=== PATIENT | female | born 1950 | race African-American/Black ===

== ENCOUNTER 2019-08-27 14:07 | Emergency (ER) | payer MEDICARE, SELFPAY ==
[2019-08-27 14:18] VITALS: BP 164/81; PULSE 73; RESP 18; TEMP 36.6; O2SAT 99; BMI 30.4
--- NOTE | 2019-08-27 14:34 | HMH.COUGH ---
Cough Clinic HPI - History of Present Illness HPI:: 69 year old female resident of [facility] who is visiting the [place] currently and needs evaluation of URI symptoms prior to being allowed to fly back to [facility] this coming weekend. Pt has had some non productive cough, sore throat and subjective low grade fever over thge past week. She thinks she may have been around someone with Covid-19 about 3 weeks ago. She denies shortness of breath. Home Medications: Home Medications Medication Instructions Recorded Confirmed Type Calcium Carbonate/Vitamin D3 2 tab PO BID 08/27/19 08/27/19 History [Calcium 600 + Vit D Tablet] Cholecalciferol (Vitamin D3) 400 unit PO DAILY 08/27/19 08/27/19 History [Vitamin D-400] Pantoprazole Sodium [Protonix 40mg 40 mg PO BID 08/27/19 08/27/19 History tablet] Allergies/Adverse Reactions: Allergies Allergy/AdvReac Type Severity Reaction Status Date / Time No Known Allergies Allergy Verified 08/27/19 14:15 Cough Clinic Triage - Symptoms Fever History: Yes Chills: Yes Myalgia: Yes Nasal Drainage: No Sore Throat: Yes Productive Cough: Yes Non-productive Cough: No Ear or Sinus Pain: Yes Joint Pain: Yes Chest Pain: Yes (pt reports feeling like gas pain) Rash: No Shortness of Breath: Yes Nausea or Vomitting: No Headache: Yes Abdominal Pain: No Diarrhea: No - Exposure History Foreign Travel: No Direct Contact with COVID-19 Patient: Yes If YES, Who:: ady When:: 3 weeks ago Distance/Proximity to Contact:: less than 6 feet away Length of Time in Direct Contact:: 40 minutes - Risk Factors Greater than 60 Years Old: Yes COPD: No Diabetes: No Heart Disease: No Home Oxygen Use: No Chronic Renal Disease: No Chronic Liver Disease: No Neurologic/Neurodevelopmental/intellectual disability: No Other Chronic Diseases: No If Female, currently : No Current Smoker: No Former Smoker: No - Eyes Eyes: Denies change in vision - Gastrointestinal Gastrointestingal: Denies: diarrhea, vomiting Cough Clinic Exam - General General appearance: alert, in no apparent distress - Head Head exam: atraumatic, normocephalic, normal inspection - Eye Eye exam: Present: normal appearance, PERRL, EOMI - ENT ENT exam: Present: normal exam, mucous membranes moist, TM's normal bilaterally, normal external ear exam - Expanded ENT Exam Throat exam: Present: tonsillar erythema - Neck Neck exam: Present: normal inspection, full ROM, trachea midline. Absent: meningismus, lymphadenopathy - Chest Chest inspection: Present: normal inspection, symmetric chest wall rise. Absent: tenderness - Respiratory Respiratory exam: Present: normal lung sounds bilaterally. Absent: respiratory distress - Cardiovascular Cardiovascular exam: Present: regular rate, normal rhythm. Absent: JVD - Extremities Exam Extremities exam: Present: normal inspection, full ROM, normal capillary refill. Absent: calf tenderness - Neurological Exam Neurological exam: Present: alert, oriented X3 - Skin Skin exam: Present: warm, dry, intact, normal color - Lymphatic Lymphatic Findings: no adenopathy Cough Clinic MDM Vital Signs: 08/27/19 14:18 Temperature 97.9 F Temperature Source Axillary Pulse Rate [Brachial] 73 Respiratory Rate 18 Blood Pressure [Left Arm] 164/81 H Blood Pressure Mean [Left Arm] 108 Blood Pressure Source [Left Arm] Automatic Cuff Blood Pressure Position [Left Arm] Sitting 02 Sat by Pulse Oximetry 99 Oxygen Delivery Method Room Air - Lab Data Lab Results 08/27/19 14:29: WBC 5.2, RBC 4.45, Hgb 12.7, Hct 38.5, MCV 86.5, MCH 28.4, MCHC 32.9, RDW 13.4, Plt Count 265, MPV 8.1, Neut % (Auto) 54.6, Lymph % (Auto) 31.6, [place] % (Auto) 9.9 H, Eos % (Auto) 3.0, Baso % (Auto) 0.9, Neut # (Auto) 2.8, Lymph # (Auto) 1.6, [place] # (Auto) 0.5, Eos # (Auto) 0.2, Baso # (Auto) 0.0 08/27/19 14:29: Influenza Type A Ag Negative, Influenza Type B Ag Negative 08/27/19 14:29: Group A
[2019-08-27 14:43] LABS: Hematocrit 38.5 % (37.0-47.0); Hemoglobin 12.7 g/dL (12.2-16.2); Mean Corpuscular HGB Conc 32.9 g/dL (31.8-35.4); Mean Corpuscular Hemoglobin 28.4 pg (27.0-31.2); Mean Corpuscular Volume 86.5 fl (81-99); Mean Platelet Volume 8.1 fl (7.4-10.4); Neutrophils % 54.6 % (37.0-80.0); Platelet Count 265 K/mm3 (142-424); Red Blood Count 4.45 M/mm3 (4.20-5.40); Red Cell Distribution Width 13.4 % (11.5-17.5); White Blood Count 5.2 K/mm3 (4.8-10.8)
[2019-08-27 14:44] LABS: Basophils % 0.9 % (0.1-2.0); Eosinophils # 0.2 K/mm3 (0.0-0.4); Lymphocytes # 1.6 K/mm3 (0.7-4.5); Lymphocytes % 31.6 % (10-50); Monocytes # 0.5 K/mm3 (0.1-1.0); Monocytes % 9.9 % (1.7-9.3); Neutrophils # 2.8 K/mm3 (1.8-7.8)
[2019-08-27 14:47] LABS: Strep Scrn Group A (Rapid) Negative (Negative)
[2019-08-27 15:18] VITALS: BP 164/81; PULSE 73; RESP 18; TEMP 36.6; O2SAT 99
[2019-08-28 16:21] LABS: Covid-19 Nasal PCR Sendout Lex NOT DETECTED
--- NOTE | 2019-08-28 16:30 | PC.NURSE ---
1630 dr. curran notified of negative COVID-19 test results 1632 pt notified of negative covid-19 test results
== END 2019-08-27 15:18 | disposition home or self-care (01) ==
PROVIDERS: Emergency Provider Family Medicine; PCP Family Medicine
DX: J06.9 Acute upper respiratory infection, unspecified (principal); Z20.828 Contact with and (suspected) exposure to other viral communicable diseases
CPT/HCPCS: 36415; 85025; 87275; 87276; 87430; 99201; 99212; U0003